=== PATIENT | male | born 1975 | race Two or more races ===

== ENCOUNTER 2023-01-01 19:31 | Inpatient (IN) | payer OTHER, SELFPAY ==
[2023-01-01 20:13] VITALS: BMI 31.9
[2023-01-01] MEDS: QUEtiapine Fumarate 300 MG TABLET PO (21:30)
--- NOTE | 2023-01-01 22:30 | PC.ADMIT ---
Patient arrived to from [facility] at 1999. Patient signed CV but as soon as he was on unit, he refused to take off his hoodie d/t being cold and stated that we will have to fight with him if we want him to take it off. EMS stated that patient took one of his own Quetiapine pills prior to transport. Staff eventually persuaded him to take off his hoodie and got him a sweatshirt from extra clothes we have on unit. Skin check administered. Patient continued to refuse to take of his beaded cross necklace which he states for latter day reasons and has never had to take it off and he still has it on currently. Patient was angry, uncooperative, and did not want to partake in admission. He was extremely anxious and banged his head on a door. He was pacing halls and requesting to take his meds he brought in. RN verified his meds and MD ordered them. Patient was laying down in his room when RN went in to give him medications and he was shivering. He took his meds, was pleasant about getting them. Patient currently isolating in room, appears to be withdrawing from substance.
[2023-01-02] MEDS: busPIRone HCl 5 MG TABLET 15 MG PO ×3 (05:26→21:36)
[2023-01-02] MEDS: cloNIDine HCL 0.2 MG TABLET PO ×2 (05:27→14:03)
[2023-01-02 06:00] VITALS: BP 122/79; PULSE 81; RESP 16; TEMP 36.4; O2SAT 98
[2023-01-02] MEDS: buPROPion HCL 100 MG TABLET 300 MG PO (08:22)
[2023-01-02] MEDS: QUEtiapine Fumarate 50 MG TABLET PO ×3 (08:22→16:44)
[2023-01-02] MEDS: LORazepam 1 MG TABLET 2 MG PO (08:22)
[2023-01-02 10:50] LABS: Alanine Aminotransferase 72 U/L (0-40); Albumin Level 4.1 g/dL (3.5-5.0); Alkaline Phosphatase 74 U/L (39-117); Anion Gap 14 (12-20); Aspartate Amino Transferase 48 U/L (5-37); Blood Urea Nitrogen 14 mg/dL (9-16); Calcium 9.5 mg/dL (8.4-10.2); Carbon Dioxide 20 mmol/L (22-29); Chloride 108 mmol/L (96-108); Cholesterol 121 mg/dL (<200); Creatinine Clr Calc Pharmacy 91.2; Estimated Glomerular Filt Rate > 60; Glucose Fasting 131 mg/dL (60-99); HDL Cholesterol 33 mg/dL (>40); LDL Cholesterol Calculated 76 mg/dL (<100); Sodium 138 mmol/L (135-145); Total Protein 7.9 g/dL (6.5-8.0); Triglycerides 64 mg/dL (<150)
--- NOTE | 2023-01-02 11:17 | P.HPPS_ITS ---
HPI Date of Service: 01/02/23 Chief Complaint: F33.3, F19.20 Sources of Information: patient interviewed, chart reviewed and crisis/core team assessment reviewed HPI Subjective Notes: Conditional Voluntary Narrative: 47 yo male from the [facility], he is single, currently homeless and unemployed. Patient has a history of MDD with psychosis and history of polysubstance dependence. There is a question of his symptoms being substance induced. He was transferred from [facility] after presenting there with SI. He was found to have a pneumonia and was kept there until medically cleared. He presented with depression, SI, AH and VH. He had CAH to jump off a renée. He was under the influence when he got to the ED. While there, his behavior was marked by agitation and pulling out his IV lines when he didn't receive Lorazepam. Patient reports being discharged from longterm in March after which he had a string of deaths of people that were close. He reports being depressed and hopeless. Since arriving on the unit he feels depressed but says his SI has subsided. His AH have subsided as well. He feels safe on the unit. He says I have been going to psych units so I don't relapse. I was a vicious drug addict. He is upset because of some of his medications not being restarted. Past Psychiatric History: Multiple psychiatric hospitalizations. Last hospital stay was in October 2022. History of 2 suicide attempts. Medical Evaluation Reviewed: Yes [facility] Social History: Patient is a father of 4. He is currently homeless and unemployed. Worked in construction. He has a GED. He has legal history as he was released from longterm in March and says he has 17 years of longterm time for drug related charges and robberies. Substance History: Polysubstance dependence. Says drug of choice is ETOH. Trauma History: Not discussed. Diagnostics Vital Signs (24Hr): Vital Signs - 24 hr 01/02/23 06:00 Temperature 97.5 F Pulse Rate 81 Respiratory Rate 16 Blood Pressure 122/79 Pulse Oximetry 98 Oxygen Delivery Method Room Air BMI result Body Mass Index 31.9 Labs 01/02/23 10:06 Labs: Laboratory Results - last 48 hr 01/02/23 10:06 Sodium 138 Potassium 4.0 Chloride 108 Carbon Dioxide 20 L Anion Gap 14 BUN 14 Creatinine 1.12 Estim Creat Clear Calc 91.2 Estimated GFR > 60 Fasting Glucose 131 H Calcium 9.5 Total Bilirubin 1.0 AST 48 H ALT 72 H Alkaline Phosphatase 74 Total Protein 7.9 Albumin 4.1 Triglycerides 64 Cholesterol 121 LDL Cholesterol, Calc 76 HDL Cholesterol 33 L Meds/Allergies Meds Home Medications Medication Instructions Recorded Confirmed Type buspirone 15 mg tablet 15 mg PO TID 01/01/23 01/01/23 History clonidine HCl 0.2 mg tablet 0.2 mg PO TID PRN anxiety 01/01/23 01/01/23 History hydroxyzine pamoate 50 mg capsule 50 mg PO Q6H PRN anxiety 01/01/23 01/01/23 History lorazepam 1 mg tablet 1 mg PO BID PRN Anxiety 01/01/23 01/01/23 History olanzapine 10 mg tablet 10 mg PO BEDTIME 01/01/23 01/01/23 History quetiapine 400 mg tablet 400 mg PO BEDTIME 01/01/23 01/01/23 History bupropion HCl 150 mg 24 hr tablet, 150 mg PO DAILY 01/02/23 01/02/23 History extended release bupropion HCl 300 mg 24 hr tablet, 300 mg PO QAM 01/02/23 01/02/23 History extended release Allergies Allergies Allergy/AdvReac Type Severity Reaction Status Date / Time diphenhydramine Allergy Unknown Unknown Verified 01/01/23 20:15 [From Benadryl] Penicillins Allergy Unknown Unknown Verified 01/01/23 20:15 Mental Status Exam Mental Status Exam Patient Appearance: Appropriate (appears older than stated age) Level of Consciousness: Awake and Alert Patient Behavior: Talkative and Cooperative Mood Description: Depressed Affect Description: Sad (tearful) Patient Cognition Impaired: No Ability to Follow Directions: Good Speech Pattern: Clear Memory Description: Intact Hallucinations: Auditory Delusions: Not Present Thought Process: Linear Thought Content: positive for Intact and positive for Linear Judgement: Fair Assessment & Plan Assessment & Plan (1) Major depression with psychotic features: Status: Acute Code(s): F32.3 - Major depressive disorder, single episode, severe with psychotic features (2) Polysubstance dependence: Status: Acute Code(s): F19.20 - Other psychoactive substance dependence, uncomplicated Assessment and Plan: 47 yo with MDD with psychosis and polysubstance use disorder transferred from [facility] due to SI and CAH telling him to jump off a renée. Plan - Admit to M5 - Collateral information - Restart current medications. - Milieu and group therapy - Disposition planning. Patient educated on: diagnosis Reason for continued inpatient stay Substantial Risk for: harm to self, inability to function and rapid decompensation Statement Statement: I have reviewed the history and physical and performed a pertinent examination on my patient. No changes have occurred unless specified. If the History and Physical was not performed prior to admission, the Hospitalist's service will be consulted for completing the admission physical. Time Spent With Patient Time: Total time managing care of this patient today ____ minutes.
[2023-01-02] MEDS: LORazepam 1 MG TABLET PO ×3 (12:15→21:37)
--- NOTE | 2023-01-02 13:12 | HO.PM.IMCN ---
History of Present Illness Data of Consult Service Date: 01/02/23 Primary Care Provider: Unknown Physician HPI Reason for consult: Admission H&P Pt is a 47-year-old male with a PMH significant for?polysubstance use disorder and MDD with psychotic features who is admitted to M3 psychiatry unit for acute psychosis with SI and auditory and visual hallucinations. Pt has apparently been experiencing auditory and visual hallucinations for the past few months with commands to ?jump off a renée?. Medical consult for admission H&P. ?Patient is a transfer from [facility] where he was admitted on 12/26 and noted to be hypoxic and was diagnosed with pneumonia. Was treated with doxycycline and completed his course of antibiotics on 01/01/2023. Patient currently experiencing no shortness of breath, dyspnea, cough. Patient's chief complaint is about medications. Says he only gets good sleep on Ambien and complains is not able to get a prescribed from any physician. Also complains about not being prescribed any stimulants. Says he will just go back to using cocaine again once he leaves the facility because it is the only thing that settles him and makes him feel level . Is endorsing vague SI of no longer wanting to put up with everything with no specific plan. Pt is quick to become agitated, angry, and verbally aggressive. He does not have any acute medical complaints. No increased malaise or fatigue. Denies chest pain/pressure, palpitations. No fever, chills, nausea, vomiting, abdominal pain. Review of Systems Review of Systems: Pt has no acute medical complaints at this time [facility] Social History Currently Displaying Signs/Symptoms of Drug Intoxication Withdrawal: No Advance Directives: No Advance Directives Information Provided: No Do you have thoughts of harming others: None Do you have a plan to hurt others: No Plan Meds Allergies Allergy/AdvReac Type Severity Reaction Status Date / Time diphenhydramine Allergy Unknown Unknown Verified 01/01/23 20:15 [From Benadryl] Penicillins Allergy Unknown Unknown Verified 01/01/23 20:15 Active Medications: Current Medications Acetaminophen (Acetaminophen 325 Mg Tablet) 650 mg PO Q6H PRN PRN Reason: Headache/Pain Mild Scale (1-3) Al Hydroxide/Mg Hydroxide (Magnesium Hydrox/Alum Hydrox 30 Ml Oral.Susp) 30 ml PO Q6H PRN PRN Reason: Heartburn/Nausea Bupropion HCl (Bupropion Hcl Xl 300 Mg Tab.Er.24h) 300 mg PO DAILY [facility]CO Bupropion HCl (Bupropion Hcl Xl 150 Mg Tab.Er.24h) 150 mg PO DAILY [facility] Buspirone HCl (Buspirone Hcl 5 Mg Tablet) 15 mg PO TID FR[facility]CO Last Admin: 01/02/23 05:26 Dose: 15 mg Clonidine HCl (Clonidine Hcl 0.2 Mg Tablet) 0.2 mg PO TID FR[facility]ISCO; Protocol Last Admin: 01/02/23 05:27 Dose: 0.2 mg Lorazepam (Lorazepam 1 Mg Tablet) 1 mg PO BID PRN PRN Reason: agitation and severe anxiety Last Admin: 01/02/23 12:15 Dose: 1 mg Magnesium Hydroxide (Milk Of Magnesia 30 Ml Oral.Susp) 30 ml PO DAILY PRN PRN Reason: Constipation Olanzapine (Olanzapine 10 Mg Tablet) 10 mg PO BEDTIME [facility] Propranolol HCl (Propranolol Hcl 10 Mg Tablet) 10 mg PO TID FR[facility]ISCO; Protocol Quetiapine Fumarate (Quetiapine Fumarate 50 Mg Tablet) 50 mg PO BID [facility] Quetiapine Fumarate (Quetiapine Fumarate 300 Mg Tablet) 300 mg PO BEDTIME [facility] Trazodone HCl (Trazodone Hcl 50 Mg Tablet) 50 mg PO BEDTIME MRX1 PRN PRN Reason: Insomnia Home Medications Medication Instructions Recorded Confirmed Last Taken Type buspirone 15 mg tablet 15 mg PO TID 01/01/23 01/01/23 Unknown History clonidine HCl 0.2 mg tablet 0.2 mg PO TID PRN anxiety 01/01/23 01/01/23 01/01/23 17:55 History hydroxyzine pamoate 50 mg capsule 50 mg PO Q6H PRN anxiety 01/01/23 01/01/23 Unknown History lorazepam 1 mg tablet 1 mg PO BID PRN Anxiety 01/01/23 01/01/23 01/01/23 17:15 History 1 mg olanzapine 10 mg tablet 10 mg PO BEDTIME 01/01/23 01/01/23 1 Day Ago History ~12/31/22 10 quetiapine 400 mg tablet 400 mg PO BEDTIME 01/01/23 01/01/23 1 Day Ago History ~12/31/22 400 bupropion HCl 150 mg 24 hr tablet, 150 mg PO DAILY 01/02/23 01/02/23 Unknown History extended release bupropion HCl 300 mg 24 hr tablet, 300 mg PO QAM 01/02/23 01/02/23 Unknown History extended release Physical Exam Vital Signs and Narrative: Vital Signs: Last Vital Signs Temp 97.5 F 01/02/23 06:00 Pulse 81 01/02/23 06:00 Resp 16 01/02/23 06:00 BP 122/79 01/02/23 06:00 Pulse Ox 98 01/02/23 06:00 O2 Del Method Room Air 01/02/23 06:00 BMI result Body Mass Index 31.9 Constitutional: Alert, agitated, at times angry, in no acute distress. Mental Status: Oriented to person, place and time. Eyes: Pupils are equal, round, and reactive to light. Ear, Nose, and Throat: Oropharynx clear, mucous membranes moist. Ears and nose without deformities. Trachea midline. Respiratory: Clear to auscultation bilaterally. No wheezing, rales, or rhonchi. Cardiovascular: S1, S2 regular. No murmurs, rubs, or gallops. Gastrointestinal: Abdomen soft, non-tender, non-distended. Normal bowel sounds. Neurologic: Cranial nerves II-XII are grossly intact bilaterally. No focal neurological deficits. Moves all extremities spontaneously. Skin: No rashes or lesions noted. Musculoskeletal: No cyanosis or clubbing. Extremities: No edema. Psychiatric: Normal mood and affect. Results Labs 01/02/23 10:06 Labs: Laboratory Results - last 24 hr 01/02/23 10:06 Anion Gap 14 Estim Creat Clear Calc 91.2 Estimated GFR > 60 Fasting Glucose 131 H Calcium 9.5 Total Bilirubin 1.0 AST 48 H ALT 72 H Alkaline Phosphatase 74 Total Protein 7.9 Albumin 4.1 Triglycerides 64 Cholesterol 121 LDL Cholesterol, Calc 76 HDL Cholesterol 33 L Assessment and Plan (1) Medical clearance for psychiatric admission: Status: Acute Plan Pt is a 47-year-old male with a PMH significant for?polysubstance use disorder and MDD with psychotic features who is admitted to M[facility] psychiatry unit for acute psychosis with SI and auditory and visual hallucinations. Pt has apparently been experiencing auditory and visual hallucinations for the past few months with commands to ?jump off a renée?. Medical consult for admission H&P. Mood disorder Plan as per psychiatry Hx of pneumonia Hypoxic at recent admission to [facility], CXR showed pneumonia Patient completed course of doxy from 12/26- 01/01/2023 Early asymptomatic: no SOB, dyspnea, fatigue, cough Patient denies any other significant PMH, does not appear to be on any chronic medications for medical issues. Thank you for allowing us to participate in the care of this patient. Signing off at this time. Please let us know if there are any acute complaints or questions. Time Spent With Patient Time: Total time managing care of this patient today ____ minutes.
[2023-01-02] MEDS: Propranolol HCL 10 MG TABLET PO (14:03)
--- NOTE | 2023-01-02 14:48 | PC.NURSE ---
PT SIGNED A 3 DAY NOTICE ON 01/02 TO BE UP ON 01/06
--- NOTE | 2023-01-02 16:27 | PC.NURSE ---
Patient agitated and feeling like I'm going to blow up . Dr. Mckeon nootified. Additional prn's ordered.
[2023-01-02 18:00] VITALS: BP 112/67; PULSE 73; RESP 16; TEMP 36.4; O2SAT 97
[2023-01-02] MEDS: OLANZapine 10 MG TABLET PO (21:36)
[2023-01-02] MEDS: QUEtiapine Fumarate 300 MG TABLET PO (21:37)
--- NOTE | 2023-01-02 21:45 | PC.NURSE ---
Heart rate 55, HS Propranolol and Clonidine held.
[2023-01-03] MEDS: LORazepam 1 MG TABLET PO ×3 (04:28→18:00)
[2023-01-03] MEDS: Propranolol HCL 10 MG TABLET PO ×3 (08:08→19:27)
[2023-01-03] MEDS: cloNIDine HCL 0.2 MG TABLET PO ×3 (08:08→19:27)
[2023-01-03] MEDS: buPROPion HCl XL 300 MG TAB.ER.24H PO (08:08)
[2023-01-03] MEDS: QUEtiapine Fumarate 50 MG TABLET PO ×2 (08:09→14:56)
[2023-01-03] MEDS: busPIRone HCl 5 MG TABLET 15 MG PO (08:09)
[2023-01-03 08:21] VITALS: BP 129/73; PULSE 65; RESP 16; TEMP 36.1; O2SAT 99
[2023-01-03] MEDS: buPROPion HCl XL 150 MG TAB.ER.24H PO (12:33)
--- NOTE | 2023-01-03 13:11 | HO.PSYCHPN ---
Subjective Subjective Date of Service: 01/03/23 Reason For Visit: F33.3, F19.20 Interim History: Patient is upset because of the timing of his medication's. He says that he takes his morning medication's at 7 o'clock in the morning and they're not administered in the hospital until nine. He said he is having a rough time. He says he's depressed. He is asking whether he could get Xanax. He also mentions that Adderall helps. He is ambivalent about going to a program. He says he has been in and out of programs for the last 14 months. He is irritable at times and can be quite demanding with staff and nursing. Asking for medication's and changes and increases. Review of Systems Review of Systems Pt has no acute medical complaints at this time Mental Status Exam Mental Status Exam Patient Appearance: Appropriate (appears older than stated age) Level of Consciousness: Awake and Alert Patient Behavior: Talkative and Cooperative Mood Description: Depressed Affect Description: Sad (tearful) Patient Cognition Impaired: No Ability to Follow Directions: Good Speech Pattern: Clear Memory Description: Intact Diagnostics Vital Signs (24Hr): Vital Signs - 24 hr 01/02/23 18:00 01/03/23 08:21 Temperature 97.6 F 96.9 F Pulse Rate 73 65 Respiratory Rate 16 16 Blood Pressure 112/67 129/73 Pulse Oximetry 97 99 Oxygen Delivery Method Room Air Room Air BMI result Body Mass Index 31.9 Labs 01/02/23 10:06 Labs: Laboratory Results - last 48 hr 01/02/23 10:06 Sodium 138 Potassium 4.0 Chloride 108 Carbon Dioxide 20 L Anion Gap 14 BUN 14 Creatinine 1.12 Estim Creat Clear Calc 91.2 Estimated GFR > 60 Fasting Glucose 131 H Calcium 9.5 Total Bilirubin 1.0 AST 48 H ALT 72 H Alkaline Phosphatase 74 Total Protein 7.9 Albumin 4.1 Triglycerides 64 Cholesterol 121 LDL Cholesterol, Calc 76 HDL Cholesterol 33 L Medications Medications Current Medications Acetaminophen (Acetaminophen 325 Mg Tablet) 650 mg PO Q6H PRN PRN Reason: Headache/Pain Mild Scale (1-3) Al Hydroxide/Mg Hydroxide (Magnesium Hydrox/Alum Hydrox 30 Ml Oral.Susp) 30 ml PO Q6H PRN PRN Reason: Heartburn/Nausea Bupropion HCl (Bupropion Hcl Xl 300 Mg Tab.Er.24h) 300 mg PO DAILY [facility]CO Last Admin: 01/03/23 08:08 Dose: 300 mg Bupropion HCl (Bupropion Hcl Xl 150 Mg Tab.Er.24h) 150 mg PO DAILY [facility] Last Admin: 01/03/23 12:33 Dose: 150 mg Buspirone HCl (Buspirone Hcl 5 Mg Tablet) 15 mg PO TID [facility] Clonidine HCl (Clonidine Hcl 0.2 Mg Tablet) 0.2 mg PO TID FR[facility]CO; Protocol Lorazepam (Lorazepam 1 Mg Tablet) 1 mg PO TID PRN PRN Reason: agitation Last Admin: 01/03/23 12:32 Dose: 1 mg Magnesium Hydroxide (Milk Of Magnesia 30 Ml Oral.Susp) 30 ml PO DAILY PRN PRN Reason: Constipation Olanzapine (Olanzapine 10 Mg Tablet) 10 mg PO BEDTIME [facility] Last Admin: 01/02/23 21:36 Dose: 10 mg Propranolol HCl (Propranolol Hcl 10 Mg Tablet) 10 mg PO TID [facility]CO; Protocol Quetiapine Fumarate (Quetiapine Fumarate 300 Mg Tablet) 300 mg PO BEDTIME [facility] Last Admin: 01/02/23 21:37 Dose: 300 mg Quetiapine Fumarate (Quetiapine Fumarate 50 Mg Tablet) 50 mg PO BID@0900,1500 [facility] Trazodone HCl (Trazodone Hcl 50 Mg Tablet) 50 mg PO BEDTIME MRX1 PRN PRN Reason: Insomnia Allergies Allergies Allergy/AdvReac Type Severity Reaction Status Date / Time diphenhydramine Allergy Unknown Unknown Verified 01/01/23 20:15 [From Benadryl] Penicillins Allergy Unknown Unknown Verified 01/01/23 20:15 Assessment & Plan Assessment & Plan (1) Major depression with psychotic features: Status: Acute Code(s): F32.3 - Major depressive disorder, single episode, severe with psychotic features (2) Polysubstance dependence: Status: Acute Code(s): F19.20 - Other psychoactive substance dependence, uncomplicated Assessment and Plan: 47 yo with MDD with psychosis and polysubstance use disorder transferred from [facility] due to SI and [facility] telling him to jump off a renée. Plan - Admit to M5 - Collateral information - Restart current medications. - Milieu and group therapy - Disposition planning. 01/03: Continue current treatment plan Reason for continued inpatient stay Substantial Risk for: harm to self, inability to function and rapid decompensation Time Spent With Patient Time: Total time managing care of this patient today ____ minutes.
[2023-01-03 14:11] VITALS: BP 129/70; PULSE 83
[2023-01-03 19:15] VITALS: BP 118/71; PULSE 72; TEMP 36.6; O2SAT 98
[2023-01-03] MEDS: QUEtiapine Fumarate 300 MG TABLET PO (19:27)
[2023-01-03] MEDS: OLANZapine 10 MG TABLET PO (19:27)
--- NOTE | 2023-01-03 19:40 | PC.NURSE ---
Patient was noted to be very agitated and said that his medications are not really being that helpful. Patient mentioned that his racing thoughts are negative in nature and he did not want to carolyn up in the morning. Patient said Adderall has been helpfful in the past. Dr. Temple notified. No Adderall will be prescribed.
[2023-01-04] MEDS: buPROPion HCl XL 300 MG TAB.ER.24H PO (06:07)
[2023-01-04] MEDS: busPIRone HCl 5 MG TABLET 15 MG PO ×5 (06:07→20:26)
[2023-01-04] MEDS: cloNIDine HCL 0.2 MG TABLET PO ×3 (06:43→20:20)
[2023-01-04] MEDS: LORazepam 1 MG TABLET PO ×4 (06:43→20:27)
[2023-01-04 08:41] VITALS: BP 121/72; PULSE 74; RESP 16; TEMP 36.7; O2SAT 99
[2023-01-04] MEDS: Propranolol HCL 10 MG TABLET PO ×3 (08:44→20:19)
[2023-01-04] MEDS: buPROPion HCl XL 150 MG TAB.ER.24H PO (08:44)
[2023-01-04] MEDS: QUEtiapine Fumarate 50 MG TABLET PO ×5 (08:45→18:30)
--- NOTE | 2023-01-04 10:11 | P.PNPSI_ITS ---
Subjective Subjective Date of Service: 01/04/23 Reason For Visit: F33.3, F19.20 Subjective Notes: 3 Day Interim History: Reviewed in team and . Patient reports feeling upset today. Patient stated, I'm having a lot of stress over the last couple of months because of my family members passing away and my son getting life in longterm. I'm having a hard time right now but I'll get through it. Maybe I will travel the [place] again because that made me happy . Patient reports he is currently homeless by choice; I can stay in an apartment at my parents house . He is demanding Adderall; pt stated, I keep telling everyone that's the only thing I want. When I take cocaine it doesn't do anything, it just calms me down . No scripts of Adderall in patient med hx. Pt denies SI/HI/VH/AH. pt signed 3 day, due 01/06/2023. Medication Compliance: Yes Side effects from medications: No Review of Systems Constitutional: Reports as per HPI Eyes: Reports as per HPI Reports as per HPI Cardiovascular: Reports as per HPI Respiratory: Reports as per HPI Gastrointestinal: Reports as per HPI Genitourinary: Reports as per HPI Musculoskeletal: Reports as per HPI Skin/Breast: Reports as per HPI Reports as per HPI Psychiatric: Reports as per HPI Endocrine: Reports as per HPI Hematologic/Lymphatic: Reports as per HPI Allergic/Immunologic: Reports as per HPI Mental Status Exam Mental Status Exam Narrative: Pt is alert and oriented; behavior is cooperative, calm; dressed in casual attire; mood is described as sad ; eye contact appropriate; Speech is normal rate, volume and prosody and not pressured; no psychomotor agitation/retardation present; thought process is organized and goal directed; Thought content is on tx; otherwise pertinent to relevant topics and without any delusional content, paranoid ideations or grandiosity; denies SI/HI. There is no evidence of perceptual disturbance. Patients insight and judgment are fair. Diagnostics Vital Signs (24Hr): Vital Signs - 24 hr 01/03/23 14:11 01/03/23 19:15 01/04/23 08:41 Temperature 97.9 F 98.1 F Pulse Rate 83 72 74 Respiratory Rate 16 Blood Pressure 129/70 118/71 121/72 Pulse Oximetry 98 99 Oxygen Delivery Method Room Air Room Air BMI result Body Mass Index 31.9 Labs 01/02/23 10:06 Labs: Laboratory Results - last 48 hr 01/02/23 10:06 Sodium 138 Potassium 4.0 Chloride 108 Carbon Dioxide 20 L Anion Gap 14 BUN 14 Creatinine 1.12 Estim Creat Clear Calc 91.2 Estimated GFR > 60 Fasting Glucose 131 H Calcium 9.5 Total Bilirubin 1.0 AST 48 H ALT 72 H Alkaline Phosphatase 74 Total Protein 7.9 Albumin 4.1 Triglycerides 64 Cholesterol 121 LDL Cholesterol, Calc 76 HDL Cholesterol 33 L Medications Medications Current Medications Acetaminophen (Acetaminophen 325 Mg Tablet) 650 mg PO Q6H PRN PRN Reason: Headache/Pain Mild Scale (1-3) Al Hydroxide/Mg Hydroxide (Magnesium Hydrox/Alum Hydrox 30 Ml Oral.Susp) 30 ml PO Q6H PRN PRN Reason: Heartburn/Nausea Bupropion HCl (Bupropion Hcl Xl 300 Mg Tab.Er.24h) 300 mg PO DAILY [facility] Last Admin: 01/04/23 06:07 Dose: 300 mg Bupropion HCl (Bupropion Hcl Xl 150 Mg Tab.Er.24h) 150 mg PO DAILY [facility] Last Admin: 01/04/23 08:44 Dose: 150 mg Buspirone HCl (Buspirone Hcl 5 Mg Tablet) 15 mg PO TID [facility] Last Admin: 01/04/23 08:45 Dose: 15 mg Clonidine HCl (Clonidine Hcl 0.2 Mg Tablet) 0.2 mg PO TID [facility]; Protocol Last Admin: 01/04/23 06:43 Dose: 0.2 mg Lorazepam (Lorazepam 1 Mg Tablet) 1 mg PO TID PRN PRN Reason: agitation Last Admin: 01/04/23 06:43 Dose: 1 mg Magnesium Hydroxide (Milk Of Magnesia 30 Ml Oral.Susp) 30 ml PO DAILY PRN PRN Reason: Constipation Olanzapine (Olanzapine 10 Mg Tablet) 10 mg PO BEDTIME [facility] Last Admin: 01/03/23 19:27 Dose: 10 mg Propranolol HCl (Propranolol Hcl 10 Mg Tablet) 10 mg PO TID [facility]; Protocol Last Admin: 01/04/23 08:44 Dose: 10 mg Quetiapine Fumarate (Quetiapine Fumarate 300 Mg Tablet) 300 mg PO BEDTIME [facility] Last Admin: 01/03/23 19:27 Dose: 300 mg Quetiapine Fumarate (Quetiapine Fumarate 50 Mg Tablet) 50 mg PO BID@0900,1500 [facility] Quetiapine Fumarate (Quetiapine Fumarate 50 Mg Tablet) 50 mg PO TID PRN PRN Reason: agitation Last Admin: 01/04/23 08:45 Dose: 50 mg Trazodone HCl (Trazodone Hcl 50 Mg Tablet) 50 mg PO BEDTIME MRX1 PRN PRN Reason: Insomnia Allergies Allergies Allergy/AdvReac Type Severity Reaction Status Date / Time diphenhydramine Allergy Unknown Unknown Verified 01/01/23 20:15 [From Benadryl] Penicillins Allergy Unknown Unknown Verified 01/01/23 20:15 Assessment & Plan Assessment & Plan (1) Major depression with psychotic features: Status: Acute Code(s): F32.3 - Major depressive disorder, single episode, severe with psychotic features (2) Polysubstance dependence: Status: Acute Code(s): F19.20 - Other psychoactive substance dependence, uncomplicated Plan 47 yo with MDD with psychosis and polysubstance use disorder transferred from [facility] due to SI and [facility] telling him to jump off a renée. - Admit to M5 - Collateral information - Restart current medications. - Milieu and group therapy - Disposition planning. 01/03: Continue current treatment plan 01/04: Patient reports feeling upset today. Patient stated, I'm having a lot of stress over the last couple of months because of my family members passing away and my son getting life in longterm. I'm having a hard time right now but I'll get through it. Maybe I will travel the [place] again because that made me happy . Patient reports he is currently homeless by choice; I can stay in an apartment at my parents house . He is demanding Adderall; pt stated, I keep telling everyone that's the only thing I want. When I take cocaine it doesn't do anything, it just calms me down . No scripts of Adderall in patient med hx. Pt denies SI/HI/VH/AH. pt signed 3 day, due 01/06/2023. Continue current tx plan. Patient educated on: diagnosis, medication risk/benefits and therapeutic strategies Informed Consent: understands Reason for continued inpatient stay Substantial Risk for: med/psych decompensation Time Spent With Patient Time: Total time managing care of this patient today _30___ minutes.
[2023-01-04] MEDS: OLANZapine 5 MG TABLET PO (12:45)
[2023-01-04 13:56] VITALS: BP 115/62; PULSE 79
[2023-01-04 18:00] VITALS: BP 119/68; PULSE 69; RESP 16; TEMP 36.4; O2SAT 98
[2023-01-04] MEDS: QUEtiapine Fumarate 300 MG TABLET PO (20:20)
[2023-01-04] MEDS: OLANZapine 10 MG TABLET PO (20:20)
[2023-01-05] MEDS: QUEtiapine Fumarate 50 MG TABLET PO ×3 (04:43→10:37)
[2023-01-05 06:00] VITALS: BP 131/84; PULSE 71; RESP 16; TEMP 36.3; O2SAT 98
[2023-01-05] MEDS: buPROPion HCl XL 300 MG TAB.ER.24H PO (06:07)
[2023-01-05] MEDS: cloNIDine HCL 0.2 MG TABLET PO ×3 (08:02→21:31)
[2023-01-05] MEDS: Propranolol HCL 10 MG TABLET PO ×3 (08:02→21:30)
[2023-01-05] MEDS: buPROPion HCl XL 150 MG TAB.ER.24H PO (08:02)
[2023-01-05] MEDS: busPIRone HCl 5 MG TABLET 15 MG PO ×3 (08:03→21:32)
[2023-01-05] MEDS: LORazepam 1 MG TABLET PO (08:58)
--- NOTE | 2023-01-05 09:59 | HO.PSYCHPN ---
Subjective Subjective Date of Service: 01/05/23 Reason For Visit: F33.3, F19.20 Subjective Notes: Conditional Voluntary Interim History: Reviewed in team and . Patient reports feeling pretty good today; pt stated, I'm not feeling down today . Patient retracted 3 day and stated, I want to stay and have my medications changed. I don't want to be on Seroquel anymore and I want to switch from Ativan to Klonopin . Risks/benefits discussed about guafacin; pt agreed to trial. Medication Compliance: Yes Side effects from medications: No Attending Groups: Yes Review of Systems Review of Systems Pt has no acute medical complaints at this time Constitutional: Reports as per HPI Eyes: Reports as per HPI Reports as per HPI Cardiovascular: Reports as per HPI Respiratory: Reports as per HPI Gastrointestinal: Reports as per HPI Genitourinary: Reports as per HPI Musculoskeletal: Reports as per HPI Skin/Breast: Reports as per HPI Reports as per HPI Psychiatric: Reports as per HPI Endocrine: Reports as per HPI Hematologic/Lymphatic: Reports as per HPI Allergic/Immunologic: Reports as per HPI Mental Status Exam Mental Status Exam Narrative: Pt is alert and oriented; behavior is cooperative, calm; dressed in casual attire; mood is described as good ; eye contact appropriate; Speech is normal rate, volume and prosody and not pressured; no psychomotor agitation/retardation present; thought process is organized and goal directed; Thought content is on tx; otherwise pertinent to relevant topics and without any delusional content, paranoid ideations or grandiosity; denies SI/HI. There is no evidence of perceptual disturbance. Patients insight and judgment are fair. Diagnostics Vital Signs (24Hr): Vital Signs - 24 hr 01/04/23 13:56 01/04/23 18:00 01/05/23 06:00 Temperature 97.6 F 97.4 F Pulse Rate 79 69 71 Respiratory Rate 16 16 Blood Pressure 115/62 119/68 131/84 Pulse Oximetry 98 98 Oxygen Delivery Method Room Air Room Air BMI result Body Mass Index 31.9 Labs 01/02/23 10:06 Medications Medications Current Medications Acetaminophen (Acetaminophen 325 Mg Tablet) 650 mg PO Q6H PRN PRN Reason: Headache/Pain Mild Scale (1-3) Al Hydroxide/Mg Hydroxide (Magnesium Hydrox/Alum Hydrox 30 Ml Oral.Susp) 30 ml PO Q6H PRN PRN Reason: Heartburn/Nausea Bupropion HCl (Bupropion Hcl Xl 300 Mg Tab.Er.24h) 300 mg PO DAILY [facility] Last Admin: 01/05/23 06:07 Dose: 300 mg Bupropion HCl (Bupropion Hcl Xl 150 Mg Tab.Er.24h) 150 mg PO DAILY [facility] Last Admin: 01/05/23 08:02 Dose: 150 mg Buspirone HCl (Buspirone Hcl 5 Mg Tablet) 15 mg PO TID [facility] Last Admin: 01/05/23 08:03 Dose: 15 mg Clonidine HCl (Clonidine Hcl 0.2 Mg Tablet) 0.2 mg PO TID [facility]; Protocol Last Admin: 01/05/23 08:02 Dose: 0.2 mg Lorazepam (Lorazepam 1 Mg Tablet) 1 mg PO TID PRN PRN Reason: agitation Last Admin: 01/05/23 08:58 Dose: 1 mg Magnesium Hydroxide (Milk Of Magnesia 30 Ml Oral.Susp) 30 ml PO DAILY PRN PRN Reason: Constipation Olanzapine (Olanzapine 10 Mg Tablet) 10 mg PO BEDTIME [facility] Last Admin: 01/04/23 20:20 Dose: 10 mg Propranolol HCl (Propranolol Hcl 10 Mg Tablet) 10 mg PO TID [facility]; Protocol Last Admin: 01/05/23 08:02 Dose: 10 mg Quetiapine Fumarate (Quetiapine Fumarate 300 Mg Tablet) 300 mg PO BEDTIME [facility] Last Admin: 01/04/23 20:20 Dose: 300 mg Quetiapine Fumarate (Quetiapine Fumarate 50 Mg Tablet) 50 mg PO BID@0900,1500 [facility] Last Admin: 01/05/23 08:03 Dose: 50 mg Quetiapine Fumarate (Quetiapine Fumarate 50 Mg Tablet) 50 mg PO TID PRN PRN Reason: agitation Last Admin: 01/05/23 04:43 Dose: 50 mg Allergies Allergies Allergy/AdvReac Type Severity Reaction Status Date / Time diphenhydramine Allergy Unknown Unknown Verified 01/01/23 20:15 [From Benadryl] Penicillins Allergy Unknown Unknown Verified 01/01/23 20:15 Assessment & Plan Assessment & Plan (1) Major depression with psychotic features: Status: Acute Code(s): F32.3 - Major depressive disorder, single episode, severe with psychotic features (2) Polysubstance dependence: Status: Acute Code(s): F19.20 - Other psychoactive substance dependence, uncomplicated Plan 47 yo with MDD with psychosis and polysubstance use disorder transferred from [facility] due to SI and [facility] telling him to jump off a renée. - Admit to M5 - Collateral information - Restart current medications. - Milieu and group therapy - Disposition planning. 01/03: Continue current treatment plan 01/04: Patient reports feeling upset today. Patient stated, I'm having a lot of stress over the last couple of months because of my family members passing away and my son getting life in retirement. I'm having a hard time right now but I'll get through it. Maybe I will travel the [place] again because that made me happy . Patient reports he is currently homeless by choice; I can stay in an apartment at my parents house . He is demanding Adderall; pt stated, I keep telling everyone that's the only thing I want. When I take cocaine it doesn't do anything, it just calms me down . No scripts of Adderall in patient med hx. Pt denies SI/HI/VH/AH. pt signed 3 day, due 01/06/2023. Continue current tx plan. 01/05: Patient reports feeling pretty good today; pt stated, I'm not feeling down today . Patient retracted 3 day and stated, I want to stay and have my medications changed. I don't want to be on Seroquel anymore and I want to switch from Ativan to Klonopin . Risks/benefits discussed about guafacin; pt agreed to trial. DC Ativan DC Seroquel PRN Hold clonidine Decrease Seroquel 200mg PO bedtime Start: Klonopin 0.5mg PO BID PRN Klonopin 1mg PO bedtime PRN Zyprexa 5mg PO TID PRN Cogentin 0.5mg PO BID PRN Guafacin 1mg PO BID Patient educated on: diagnosis, medication risk/benefits and therapeutic strategies Informed Consent: understands Reason for continued inpatient stay Substantial Risk for: med/psych decompensation Time Spent With Patient Time: Total time managing care of this patient today _30___ minutes.
--- NOTE | 2023-01-05 10:48 | PC.NURSE ---
Pt. retracted 3 day notice on 01/05
[2023-01-05] MEDS: OLANZapine 5 MG TABLET PO ×2 (11:43→16:19)
[2023-01-05] MEDS: guanFACINE HCl ER 1 MG TAB.ER.24H PO ×2 (12:04→21:24)
[2023-01-05 12:30] VITALS: BP 130/72; PULSE 69; RESP 18
[2023-01-05] MEDS: clonazePAM 0.5 MG TABLET PO ×2 (12:42→17:02)
[2023-01-05 16:15] VITALS: BP 130/71; PULSE 68; TEMP 36.3
[2023-01-05] MEDS: OLANZapine 10 MG TABLET PO (21:24)
[2023-01-05] MEDS: QUEtiapine Fumarate 200 MG TABLET PO (21:24)
[2023-01-05] MEDS: clonazePAM 1 MG TABLET PO (21:26)
[2023-01-06 06:00] VITALS: BP 118/75; PULSE 63; RESP 16; TEMP 36.3; O2SAT 98
[2023-01-06] MEDS: busPIRone HCl 5 MG TABLET 15 MG PO ×3 (06:06→20:28)
[2023-01-06] MEDS: cloNIDine HCL 0.2 MG TABLET PO ×3 (06:07→20:27)
[2023-01-06] MEDS: Propranolol HCL 10 MG TABLET PO ×2 (06:07→11:49)
[2023-01-06] MEDS: buPROPion HCl XL 300 MG TAB.ER.24H PO (06:08)
[2023-01-06] MEDS: buPROPion HCl XL 150 MG TAB.ER.24H PO (08:44)
[2023-01-06] MEDS: guanFACINE HCl ER 1 MG TAB.ER.24H PO ×2 (08:44→20:27)
[2023-01-06] MEDS: clonazePAM 0.5 MG TABLET PO (09:49)
--- NOTE | 2023-01-06 10:06 | P.PNPSI_ITS ---
Subjective Subjective Date of Service: 01/06/23 Reason For Visit: F33.3, F19.20 Subjective Notes: Conditional Voluntary Interim History: Reviewed in team and . T/W and social work supervisor met with patient. Patient reports feeling anxious today; pt stated, I'm just thinking about everything that's happened to me . He is requesting to be referred to respite in [place], [place]; he reported if he is unable to get in, he would go and stay with his parents. Medication Compliance: Yes Side effects from medications: No Attending Groups: Yes Review of Systems Review of Systems Pt has no acute medical complaints at this time Constitutional: Reports as per HPI Eyes: Reports as per HPI Reports as per HPI Cardiovascular: Reports as per HPI Respiratory: Reports as per HPI Gastrointestinal: Reports as per HPI Genitourinary: Reports as per HPI Musculoskeletal: Reports as per HPI Skin/Breast: Reports as per HPI Reports as per HPI Psychiatric: Reports as per HPI Endocrine: Reports as per HPI Hematologic/Lymphatic: Reports as per HPI Allergic/Immunologic: Reports as per HPI Mental Status Exam Mental Status Exam Narrative: Pt is alert and oriented; behavior is cooperative, calm; dressed in casual attire; mood is described as anxious ; eye contact appropriate; Speech is normal rate, volume and prosody and not pressured; no psychomotor agitation/retardation present; thought process is organized and goal directed; Thought content is on tx; otherwise pertinent to relevant topics and without any delusional content, paranoid ideations or grandiosity; denies SI/HI. There is no evidence of perceptual disturbance. Patients insight and judgment are fair. Patient Appearance: Appropriate (appears older than stated age) Level of Consciousness: Awake and Alert Patient Behavior: Talkative and Cooperative Mood Description: Depressed Affect Description: Sad (tearful) Patient Cognition Impaired: No Ability to Follow Directions: Good Speech Pattern: Clear Memory Description: Intact Diagnostics Vital Signs (24Hr): Vital Signs - 24 hr 01/05/23 12:30 01/05/23 16:15 01/06/23 06:00 Temperature 97.4 F 97.4 F Pulse Rate 69 68 63 Respiratory Rate 18 16 Blood Pressure 130/72 130/71 118/75 Pulse Oximetry 98 Oxygen Delivery Method Room Air BMI result Body Mass Index 31.9 Labs 01/02/23 10:06 Medications Medications Current Medications Acetaminophen (Acetaminophen 325 Mg Tablet) 650 mg PO Q6H PRN PRN Reason: Headache/Pain Mild Scale (1-3) Al Hydroxide/Mg Hydroxide (Magnesium Hydrox/Alum Hydrox 30 Ml Oral.Susp) 30 ml PO Q6H PRN PRN Reason: Heartburn/Nausea Benztropine Mesylate (Benztropine Mesylate 0.5 Mg Tablet) 0.5 mg PO BID PRN PRN Reason: Extrapyramidal Effects Bupropion HCl (Bupropion Hcl Xl 300 Mg Tab.Er.24h) 300 mg PO DAILY [facility] Last Admin: 01/06/23 06:08 Dose: 300 mg Bupropion HCl (Bupropion Hcl Xl 150 Mg Tab.Er.24h) 150 mg PO DAILY [facility] Last Admin: 01/06/23 08:44 Dose: 150 mg Buspirone HCl (Buspirone Hcl 5 Mg Tablet) 15 mg PO TID@0700,1200,2100 [facility] Last Admin: 01/06/23 06:06 Dose: 15 mg Clonazepam (Clonazepam 0.5 Mg Tablet) 0.5 mg PO BID@0800,1500 PRN PRN Reason: Anxiety Last Admin: 01/06/23 09:49 Dose: 0.5 mg Clonazepam (Clonazepam 1 Mg Tablet) 1 mg PO BEDTIME PRN PRN Reason: Anxiety Last Admin: 01/05/23 21:26 Dose: 1 mg Clonidine HCl (Clonidine Hcl 0.2 Mg Tablet) 0.2 mg PO TID@0700,1200,2100 [facility]; Protocol Last Admin: 01/06/23 06:07 Dose: 0.2 mg Guanfacine HCl (Guanfacine Hcl Er 1 Mg Tab.Er.24h) 1 mg PO BID [facility] Last Admin: 01/06/23 08:44 Dose: 1 mg Magnesium Hydroxide (Milk Of Magnesia 30 Ml Oral.Susp) 30 ml PO DAILY PRN PRN Reason: Constipation Olanzapine (Olanzapine 10 Mg Tablet) 10 mg PO BEDTIME [facility] Last Admin: 01/05/23 21:24 Dose: 10 mg Olanzapine (Olanzapine 5 Mg Tablet) 5 mg PO TID PRN PRN Reason: anxiety/restlessness Last Admin: 01/05/23 16:19 Dose: 5 mg Propranolol HCl (Propranolol Hcl 10 Mg Tablet) 10 mg PO TID@0700,1200,2100 [facility]; Protocol Last Admin: 01/06/23 06:07 Dose: 10 mg Quetiapine Fumarate (Quetiapine Fumarate 200 Mg Tablet) 200 mg PO BEDTIME [facility] Last Admin: 01/05/23 21:24 Dose: 200 mg Allergies Allergies Allergy/AdvReac Type Severity Reaction Status Date / Time diphenhydramine Allergy Unknown Unknown Verified 01/01/23 20:15 [From Benadryl] Penicillins Allergy Unknown Unknown Verified 01/01/23 20:15 Assessment & Plan Assessment & Plan (1) Major depression with psychotic features: Status: Acute Code(s): F32.3 - Major depressive disorder, single episode, severe with psychotic features (2) Polysubstance dependence: Status: Acute Code(s): F19.20 - Other psychoactive substance dependence, uncomplicated Plan 47 yo with MDD with psychosis and polysubstance use disorder transferred from [facility] due to SI and [facility] telling him to jump off a renée. - Admit to M5 - Collateral information - Restart current medications. - Milieu and group therapy - Disposition planning. 01/03: Continue current treatment plan 01/04: Patient reports feeling upset today. Patient stated, I'm having a lot of stress over the last couple of months because of my family members passing away and my son getting life in nursing home. I'm having a hard time right now but I'll get through it. Maybe I will travel the [place] again because that made me happy . Patient reports he is currently homeless by choice; I can stay in an apartment at my parents house . He is demanding Adderall; pt stated, I keep telling everyone that's the only thing I want. When I take cocaine it doesn't do anything, it just calms me down . No scripts of Adderall in patient med hx. Pt denies SI/HI/VH/AH. pt signed 3 day, due 01/06/2023. Continue current tx plan. 01/05: Patient reports feeling pretty good today; pt stated, I'm not feeling down today . Patient retracted 3 day and stated, I want to stay and have my medications changed. I don't want to be on Seroquel anymore and I want to switch from Ativan to Klonopin . Risks/benefits discussed about guafacin; pt agreed to trial. DC Ativan DC Seroquel PRN Hold clonidine Decrease Seroquel 200mg PO bedtime Start: Klonopin 0.5mg PO BID PRN Klonopin 1mg PO bedtime PRN Zyprexa 5mg PO TID PRN Cogentin 0.5mg PO BID PRN Guafacin 1mg PO BID 01/06: T/W and social work supervisor met with patient. Patient reports feeling anxious today; pt stated, I'm just thinking about everything that's happened to me . He is requesting to be referred to respite in [place], [place]; he reported if he is unable to get in, he would go and stay with his parents. Increased klonopin to 1mg PO TID PRN; Decreased seroquel to 100mg PO bedtime. Patient educated on: diagnosis, medication risk/benefits and therapeutic strategies Informed Consent: understands Reason for continued inpatient stay Substantial Risk for: med/psych decompensation Time Spent With Patient Time: Total time managing care of this patient today _30___ minutes.
[2023-01-06 11:44] VITALS: BP 126/67; PULSE 67
[2023-01-06] MEDS: Acetaminophen 325 MG TABLET 650 MG PO (11:49)
[2023-01-06] MEDS: OLANZapine 5 MG TABLET PO ×2 (12:35→16:17)
[2023-01-06] MEDS: clonazePAM 1 MG TABLET PO ×2 (15:08→20:33)
[2023-01-06] MEDS: OLANZapine 10 MG TABLET PO (20:27)
[2023-01-06] MEDS: QUEtiapine Fumarate 100 MG TABLET PO (20:27)
[2023-01-06 20:35] VITALS: BP 119/69; PULSE 55; RESP 16; TEMP 36.3; O2SAT 99
[2023-01-07] MEDS: clonazePAM 1 MG TABLET PO ×3 (02:28→16:36)
[2023-01-07 05:55] VITALS: BP 122/72
[2023-01-07] MEDS: buPROPion HCl XL 300 MG TAB.ER.24H PO (05:59)
[2023-01-07] MEDS: Propranolol HCL 10 MG TABLET PO ×3 (06:00→21:20)
[2023-01-07] MEDS: busPIRone HCl 5 MG TABLET 15 MG PO ×3 (06:00→21:20)
[2023-01-07 07:00] VITALS: BMI 30.5
[2023-01-07 08:10] VITALS: BP 115/70; PULSE 61; RESP 16; TEMP 36.6; O2SAT 99
[2023-01-07] MEDS: guanFACINE HCl ER 1 MG TAB.ER.24H PO ×2 (08:13→21:20)
[2023-01-07] MEDS: cloNIDine HCL 0.2 MG TABLET PO ×3 (08:13→21:20)
[2023-01-07] MEDS: buPROPion HCl XL 150 MG TAB.ER.24H PO (08:13)
[2023-01-07] MEDS: OLANZapine 5 MG TABLET PO ×2 (09:41→14:57)
--- NOTE | 2023-01-07 09:49 | P.PNPSI_ITS ---
Subjective Subjective Date of Service: 01/07/23 Reason For Visit: F33.3, F19.20 Subjective Notes: Conditional Voluntary Interim History: Reviewed in team and . Patient reports feeling ready to go today. He is hoping to be accepted to respite in [place], [place]; he reported if he is unable to get in, he would go and stay with his parents. Reports feeling better; denies SI/HI/VH/AH. Medication Compliance: Yes Side effects from medications: No Attending Groups: Yes Review of Systems Review of Systems Pt has no acute medical complaints at this time Constitutional: Reports as per HPI Eyes: Reports as per HPI Reports as per HPI Cardiovascular: Reports as per HPI Respiratory: Reports as per HPI Gastrointestinal: Reports as per HPI Genitourinary: Reports as per HPI Musculoskeletal: Reports as per HPI Skin/Breast: Reports as per HPI Reports as per HPI Psychiatric: Reports as per HPI Endocrine: Reports as per HPI Hematologic/Lymphatic: Reports as per HPI Allergic/Immunologic: Reports as per HPI Mental Status Exam Mental Status Exam Narrative: Pt is alert and oriented; behavior is cooperative, calm; dressed in casual attire; mood is described as good ; eye contact appropriate; Speech is normal rate, volume and prosody and not pressured; no psychomotor agitation/retardation present; thought process is organized and goal directed; Thought content is on tx; otherwise pertinent to relevant topics and without any delusional content, paranoid ideations or grandiosity; denies SI/HI. There is no evidence of perceptual disturbance. Patients insight and judgment are fair. Diagnostics Vital Signs (24Hr): Vital Signs - 24 hr 01/06/23 11:44 01/06/23 20:35 01/07/23 05:55 Temperature 97.3 F Pulse Rate 67 55 Respiratory Rate 16 Blood Pressure 126/67 119/69 122/72 Pulse Oximetry 99 Oxygen Delivery Method Room Air 01/07/23 08:10 Temperature 97.8 F Pulse Rate 61 Respiratory Rate 16 Blood Pressure 115/70 Pulse Oximetry 99 Oxygen Delivery Method Room Air BMI result Body Mass Index 30.5 Labs 01/02/23 10:06 Medications Medications Current Medications Acetaminophen (Acetaminophen 325 Mg Tablet) 650 mg PO Q6H PRN PRN Reason: Headache/Pain Mild Scale (1-3) Last Admin: 01/06/23 11:49 Dose: 650 mg Al Hydroxide/Mg Hydroxide (Magnesium Hydrox/Alum Hydrox 30 Ml Oral.Susp) 30 ml PO Q6H PRN PRN Reason: Heartburn/Nausea Benztropine Mesylate (Benztropine Mesylate 0.5 Mg Tablet) 0.5 mg PO BID PRN PRN Reason: Extrapyramidal Effects Bupropion HCl (Bupropion Hcl Xl 300 Mg Tab.Er.24h) 300 mg PO DAILY [facility] Last Admin: 01/07/23 05:59 Dose: 300 mg Bupropion HCl (Bupropion Hcl Xl 150 Mg Tab.Er.24h) 150 mg PO DAILY [facility] Last Admin: 01/07/23 08:13 Dose: 150 mg Buspirone HCl (Buspirone Hcl 5 Mg Tablet) 15 mg PO TID@0700,1200,2100 [facility] Last Admin: 01/07/23 06:00 Dose: 15 mg Clonazepam (Clonazepam 1 Mg Tablet) 1 mg PO TID PRN PRN Reason: Anxiety Last Admin: 01/07/23 02:28 Dose: 1 mg Clonidine HCl (Clonidine Hcl 0.2 Mg Tablet) 0.2 mg PO TID@0700,1200,2100 [facility]; Protocol Last Admin: 01/07/23 08:13 Dose: 0.2 mg Guanfacine HCl (Guanfacine Hcl Er 1 Mg Tab.Er.24h) 1 mg PO BID [facility] Last Admin: 01/07/23 08:13 Dose: 1 mg Magnesium Hydroxide (Milk Of Magnesia 30 Ml Oral.Susp) 30 ml PO DAILY PRN PRN Reason: Constipation Olanzapine (Olanzapine 10 Mg Tablet) 10 mg PO BEDTIME [facility] Last Admin: 01/06/23 20:27 Dose: 10 mg Olanzapine (Olanzapine 5 Mg Tablet) 5 mg PO TID PRN PRN Reason: anxiety/restlessness Last Admin: 01/07/23 09:41 Dose: 5 mg Propranolol HCl (Propranolol Hcl 10 Mg Tablet) 10 mg PO TID@0700,1200,2100 [facility]; Protocol Last Admin: 01/07/23 06:00 Dose: 10 mg Quetiapine Fumarate (Quetiapine Fumarate 100 Mg Tablet) 100 mg PO BEDTIME [facility] Last Admin: 01/06/23 20:27 Dose: 100 mg Allergies Allergies Allergy/AdvReac Type Severity Reaction Status Date / Time diphenhydramine Allergy Unknown Unknown Verified 01/01/23 20:15 [From Benadryl] Penicillins Allergy Unknown Unknown Verified 01/01/23 20:15 Assessment & Plan Assessment & Plan (1) Major depression with psychotic features: Status: Acute Code(s): F32.3 - Major depressive disorder, single episode, severe with psychotic features (2) Polysubstance dependence: Status: Acute Code(s): F19.20 - Other psychoactive substance dependence, uncomplicated Plan 47 yo with MDD with psychosis and polysubstance use disorder transferred from [facility] due to SI and CAH telling him to jump off a renée. - Admit to M5 - Collateral information - Restart current medications. - Milieu and group therapy - Disposition planning. 01/03: Continue current treatment plan 01/04: Patient reports feeling upset today. Patient stated, I'm having a lot of stress over the last couple of months because of my family members passing away and my son getting life in nursing home. I'm having a hard time right now but I'll get through it. Maybe I will travel the [place] again because that made me happy . Patient reports he is currently homeless by choice; I can stay in an apartment at my parents house . He is demanding Adderall; pt stated, I keep telling everyone that's the only thing I want. When I take cocaine it doesn't do anything, it just calms me down . No scripts of Adderall in patient med hx. Pt denies SI/HI/VH/AH. pt signed 3 day, due 01/06/2023. Continue current tx plan. 01/05: Patient reports feeling pretty good today; pt stated, I'm not feeling down today . Patient retracted 3 day and stated, I want to stay and have my medications changed. I don't want to be on Seroquel anymore and I want to switch from Ativan to Klonopin . Risks/benefits discussed about guafacin; pt agreed to trial. DC Ativan DC Seroquel PRN Hold clonidine Decrease Seroquel 200mg PO bedtime Start: Klonopin 0.5mg PO BID PRN Klonopin 1mg PO bedtime PRN Zyprexa 5mg PO TID PRN Cogentin 0.5mg PO BID PRN Guafacin 1mg PO BID 01/06: T/W and social insurance administrator met with patient. Patient reports feeling anxious today; pt stated, I'm just thinking about everything that's happened to me . He is requesting to be referred to respite in [place], [place]; he reported if he is unable to get in, he would go and stay with his parents. Increased klonopin to 1mg PO TID PRN; Decreased seroquel to 100mg PO bedtime. 01/07: Patient reports feeling ready to go today. He is hoping to be accepted to respite in [place], [place]; he reported if he is unable to get in, he would go and stay with his parents. Reports feeling better; denies SI/HI/VH/AH. DC Seroquel. Patient educated on: diagnosis, medication risk/benefits and therapeutic strategies Informed Consent: understands Reason for continued inpatient stay Substantial Risk for: stable for discharge and med/psych decompensation Time Spent With Patient Time: Total time managing care of this patient today _30___ minutes.
[2023-01-07] MEDS: QUEtiapine Fumarate 100 MG TABLET PO (17:59)
[2023-01-07 21:15] VITALS: BP 101/63; PULSE 66; RESP 16
[2023-01-07] MEDS: OLANZapine 10 MG TABLET PO (21:20)
[2023-01-07] MEDS: QUEtiapine Fumarate 50 MG TABLET PO (21:21)
[2023-01-08] MEDS: clonazePAM 1 MG TABLET PO ×3 (01:59→11:13)
[2023-01-08] MEDS: QUEtiapine Fumarate 50 MG TABLET PO (01:59)
[2023-01-08] MEDS: OLANZapine 5 MG TABLET PO (04:44)
[2023-01-08] MEDS: Propranolol HCL 10 MG TABLET PO ×2 (05:59→11:14)
[2023-01-08] MEDS: buPROPion HCl XL 300 MG TAB.ER.24H PO (05:59)
[2023-01-08] MEDS: busPIRone HCl 5 MG TABLET 15 MG PO ×2 (06:00→11:14)
[2023-01-08] MEDS: buPROPion HCl XL 150 MG TAB.ER.24H PO (07:54)
[2023-01-08] MEDS: guanFACINE HCl ER 1 MG TAB.ER.24H PO (07:54)
[2023-01-08] MEDS: cloNIDine HCL 0.2 MG TABLET PO ×2 (08:14→11:15)
[2023-01-08 08:47] VITALS: BP 127/78; PULSE 70; RESP 16; TEMP 36.5; O2SAT 99
--- NOTE | 2023-01-08 10:29 | P.DS_ITS ---
DS: Providers Provider Date of Service: 01/08/23 Date of admission: 01/01/23 19:31 Date of discharge: 01/08/23 Primary care physician: Unknown Physician Admitting clinician: Nereyda Montoya Attending physician on admission: Luis Eduardo Zhang Consults: 01/01/23 20:16 Consult to Hospitalist Routine Comment: Consulting Provider: Hospitalist Reason For Exam: DIRECT ADMISSION Attending physician on discharge: Luis Eduardo Zhang Discharging clinician: Nereyda Montoya DS: Diagnosis Discharge Diagnosis (1) Major depression with psychotic features: Status: Acute (2) Polysubstance dependence: Status: Acute DS: Medications Discharge Medications Home Medications: Previous Rx's Medication Instructions Recorded bupropion HCl 150 mg 24 hr tablet, 150 mg PO DAILY 30 days #30 tabs 01/08/23 extended release bupropion HCl 300 mg 24 hr tablet, 300 mg PO DAILY 30 days #30 tabs 01/08/23 extended release buspirone 15 mg tablet 15 mg PO TID 30 days #90 tabs 01/08/23 clonazepam 1 mg tablet 1 mg PO TID PRN Anxiety 30 days 01/08/23 #90 tabs clonidine HCl 0.2 mg tablet 0.2 mg PO TID PRN anxiety 30 days 01/08/23 #90 tabs guanfacine 1 mg tablet,extended 1 mg PO BID 30 days #60 tabs 01/08/23 release 24 hr olanzapine 10 mg tablet 10 mg PO BEDTIME 30 days #30 tabs 01/08/23 olanzapine 5 mg tablet 5 mg PO TID PRN 01/08/23 Anxiety/Restlessness 30 days #90 tabs propranolol 10 mg tablet 10 mg PO TID 30 days #90 tabs 01/08/23 Mental Status Exam Mental Status Exam Narrative: Pt is alert and oriented; behavior is cooperative, friendly and calm; patient is not in distress; dressed in casual attire; mood is described as good ; eye contact appropriate; Speech is normal rate, volume and prosody and not pressured; no psychomotor agitation/retardation present; thought process is organized and goal directed; Thought content is on tx; otherwise pertinent to relevant topics and without any delusional content, paranoid ideations or grandiosity; denies SI/HI. There is no evidence of perceptual disturbance. Patients insight and judgment are fair. Data Data Completed and Pending Completed studies during hospitalization [Text1]: 01/02/23 10:06 Sodium 138 Potassium 4.0 Chloride 108 Carbon Dioxide 20 L Anion Gap 14 BUN 14 Creatinine 1.12 Estim Creat Clear Calc 91.2 Estimated GFR > 60 Fasting Glucose 131 H Calcium 9.5 Total Bilirubin 1.0 AST 48 H ALT 72 H Alkaline Phosphatase 74 Total Protein 7.9 Albumin 4.1 Triglycerides 64 Cholesterol 121 LDL Cholesterol, Calc 76 HDL Cholesterol 33 L DS: Summary Hospital Course Hospital Course: Patient is a 47 year old male from the [facility], he is single, currently homeless and unemployed. Patient has a history of MDD with psychosis and history of polysubstance dependence. There is a question of his symptoms being substance induced. He was transferred from [facility] after presenting there with SI. He was found to have a pneumonia and was kept there until medically cleared. He presented with depression, SI, AH and VH. He had CAH to jump off a renée. He was under the influence when he got to the ED. While there, his behavior was marked by agitation and pulling out his IV lines when he didn't receive Lorazepam. Patient reports being discharged from skilled nursing in March after which he had a string of deaths of people that were close. He reports being depressed and hopeless. Since arriving on the unit he feels depressed but says his SI has subsided. His AH have subsided as well. He feels safe on the unit. He says I have been going to psych units so I don't relapse. I was a vicious drug addict. He is upset because of some of his medications not being restarted. During hospital stay, patient reports feeling upset today. Patient stated, I'm having a lot of stress over the last couple of months because of my family members passing away and my son getting life in half-way. I'm having a hard time right now but I'll get through it. Maybe I will travel the [place] again because that made me happy . Patient reports he is currently homeless by choice; I can stay in an apartment at my parents house . He is demanding Adderall; pt stated, I keep telling everyone that's the only thing I want. When I take cocaine it doesn't do anything, it just calms me down . No scripts of Adderall in patient med hx. Pt denies SI/HI/VH/AH. pt signed 3 day, due 01/06/2023. Patient reports feeling pretty good today; pt stated, I'm not feeling down today . Patient retracted 3 day and stated, I want to stay and have my medications changed. I don't want to be on Seroquel anymore and I want to switch from Ativan to Klonopin . Risks/benefits discussed about guafacin; pt agreed to trial. DC Ativan DC Seroquel PRN Hold clonidine Decrease Seroquel 200mg PO bedtime Start: Klonopin 0.5mg PO BID PRN Klonopin 1mg PO bedtime PRN Zyprexa 5mg PO TID PRN Cogentin 0.5mg PO BID PRN Guafacin 1mg PO BID T/W and high school social studies tutor met with patient. Patient reports feeling anxious today; pt stated, I'm just thinking about everything that's happened to me . He is re questing to be referred to respite in [place], [place]; he reported if he is unable to get in, he would go and stay with his parents. Increased klonopin to 1mg PO TID PRN; Decreased seroquel to 100mg PO bedtime. Patient reports feeling ready to go today; reports feeling better than when I came here . DC Seroquel. Patient was accepted to respite in [place], [place]; he reports he plans on following up with outpatient providers. Denies SI/HI/VH/AH. Time spent discussing smoking cessation with patient: 3 to 10 minutes Status at Discharge Cognitive/behavioral status at discharge: Patient was interviewed prior to discharge and found to be fully oriented and without any SI or HI. Patient has insight and demonstrates good judgment in terms of wanting to pursue treatment. Patient is not in imminent risk of harm to self or others and has a safety plan that includes presenting to the closest ER or calling 911 if feeling unsafe. Patient has been observed closely by nursing and unit staff throughout admission; patient has not engaged in any behaviors that suggest dangerousness to self or others and has demonstrated appropriate behaviors and impulse control. Functional status at discharge: independent ambulation Overall status at discharge: patient is back to baseline Time Spent with Patient Time attestation: Total time managing care of this patient today _30___ minutes. Time spent: Less than 30 minutes Discharge Plan Discharge Anticipated Discharge Date/Time: 01/08/23 10:07 Patient Disposition: Xfer to Respite Facility Discharge Diagnosis: MDD, Polysubstance use d/o Referrals: Jessika Goss: [facility] [Other] - 01/12/23 12:30 pm (Patient hospital discharge appointment for psychiatric medication management. Appointment is by tele-health ) [facility] [Other] - 1 Week (Appointment scheduled 01/13/2023 at 1:40pm) Discharge Medications: New propranolol 10 mg Tablet 10 mg PO TID 30 Days Qty: 90 0RF Protocol: Hold for SBP/HR < HOLD for SBP < : 90 HOLD for HR < : 60 bupropion HCl 150 mg Tablet Extended Release 24 Hr 150 mg PO DAILY 30 Days Qty: 30 0RF bupropion HCl 300 mg Tablet Extended Release 24 Hr 300 mg PO DAILY 30 Days Qty: 30 0RF buspirone 15 mg tablet 15 mg PO TID 30 Days Qty: 90 0RF clonazepam 1 mg Tablet 1 mg PO TID PRN (Reason: Anxiety) 30 Days Qty: 90 0RF guanfacine 1 mg Tablet Extended Release 24 Hr 1 mg PO BID 30 Days Qty: 60 0RF olanzapine 10 mg Tablet 10 mg PO BEDTIME 30 Days Qty: 30 0RF olanzapine 5 mg Tablet 5 mg PO TID PRN (Reason: Anxiety/Restlessness) 30 Days Qty: 90 0RF Continued clonidine HCl 0.2 mg tablet 0.2 mg PO TID PRN (Reason: anxiety) 30 Days Qty: 90 0RF Discontinued hydroxyzine pamoate 50 mg capsule 50 mg PO Q6H PRN (Reason: anxiety) olanzapine 10 mg tablet 10 mg PO BEDTIME lorazepam 1 mg tablet 1 mg PO BID PRN (Reason: Anxiety) buspirone 15 mg tablet 15 mg PO TID quetiapine 400 mg tablet 400 mg PO BEDTIME bupropion HCl 300 mg tablet extended release 24 hr 300 mg PO QAM bupropion HCl 150 mg tablet extended release 24 hr 150 mg PO DAILY Discharge Orders: Discharge Order (Routine); Ordered 01/08/23 Ordered By: Nereyda Montoya Diet: Regular diet Activity on Discharge: As tolerated Stand Alone Forms: Patient Portal Discharge page, Community Support Care Plan Goals: Maintain mood and safe behaviors Take medications as prescribed Continue to pursue sobriety Practice coping skills Continue with outpatient providers and reach out to them as needed Health Concerns: Mood stability and behaviors Sobriety Plan of Treatment: Follow up with your PCP, psychiatric provider and other outpatient providers regarding above concerns Take medications as prescribed Assessment: Patient was interviewed prior to discharge and found to be fully oriented and without any SI or HI. Patient has insight and demonstrates good judgment in terms of wanting to pursue treatment. Patient is not in imminent risk of harm to self or others and has a safety plan that includes presenting to the closest ER or calling 911 if feeling unsafe. Patient has been observed closely by nursing and unit staff throughout admission; patient has not engaged in any behaviors that suggest dangerousness to self or others and has demonstrated appropriate behaviors and impulse control. Discharge Date/Time: 01/08/23 11:38
[2023-01-08] MEDS: Naloxone HCl Nasal TAKE HOME 4 MG SPRAY 8 MG NOSTRILALT (11:14)
== END 2023-01-08 11:38 | DRG 751 ==
PROVIDERS: Psychiatry & Neurology Psychiatry; Admitting Provider Psychiatry & Neurology Psychiatry; Responsible Provider Registered Nurse; Visit Provider Psychiatry & Neurology Psychiatry
DX: F32.3 Major depressive disorder, single episode, severe with psychotic features (principal); R45.851 Suicidal ideations; F19.20 Other psychoactive substance dependence, uncomplicated; F19.90 Other psychoactive substance use, unspecified, uncomplicated; Z23 Encounter for immunization; Z59.02 Unsheltered homelessness; Z79.899 Other long term (current) drug therapy
CPT/HCPCS: 36415; 80053; 80061; 90686

== ENCOUNTER → 2023-01-01 19:31 | Outpatient (BNV) | payer OTHER, SELFPAY | PROVIDERS: Admitting Provider Psychiatry & Neurology Psychiatry; Visit Provider Psychiatry & Neurology Psychiatry | DX: F32.3 Major depressive disorder, single episode, severe with psychotic features (principal); F19.20 Other psychoactive substance dependence, uncomplicated | CPT/HCPCS: 99231; 99232 ==

== ENCOUNTER → 2023-01-01 19:31 | Outpatient (BNV) | payer OTHER, SELFPAY | PROVIDERS: Admitting Provider Psychiatry & Neurology Psychiatry; Responsible Provider Registered Nurse; Visit Provider Psychiatry & Neurology Psychiatry | DX: F33.3 Major depressive disorder, recurrent, severe with psychotic symptoms (principal); F19.20 Other psychoactive substance dependence, uncomplicated | CPT/HCPCS: 99231; 99232 ==

== ENCOUNTER → 2023-01-01 19:31 | Outpatient (BNV) | payer MEDICAID, SELFPAY | PROVIDERS: Admitting Provider Psychiatry & Neurology Psychiatry; Visit Provider Student in an Organized Health Care Education/Training Program | DX: Z02.2 Encounter for examination for admission to residential institution (principal) | CPT/HCPCS: 99429 ==